=== PATIENT | male | born 1990 | race Caucasian/White ===

== ENCOUNTER 2021-11-09 15:38 | Emergency (ER) | payer OTHER ==
[~2021-11-09] VITALS: Ht 182.9 cm; Wt 59.9 kg
[~2021-11-09 15:38] MED LIST: NORCO 5-325 TA1 EACH PO
--- OUTSIDE RECORDS SUMMARY | 2021-11-09 15:44 | XMS ---
PreManage Notification: MIRNA GANNON Security Retail Account Manager Events No recent Security Events currently on file CRITERIA MET - [facility] - 2 Visits in 30 Days CARE PROVIDERS There are no care providers on record at this time. Cam has no Care Guidelines for this patient. Dany VIS[facility] COUNT (12 MO.) [facility] TOTAL 2 NOTE: Visits indicate total known visits. ED/C VISIT TRACKING (12 MO.) [facility] COMPLAINT: - JAW PAIN 11/08/2021 22:14 [facility] [place] TYPE: Emergency COMPLAINT: - JAW PAIN INPATIENT VISIT TRACKING (12 MO.) No inpatient visits to display in this time frame [id number]
[2021-11-09] MEDS ORDERED: PENICILLIN V P500 MG PO (17:03)
== END 2021-11-09 17:11 | disposition home or self-care (01) ==
LOC: ED 15:38
DX: R68.84 Jaw pain (principal); F17.200 Nicotine dependence, unspecified, uncomplicated
CPT/HCPCS: 99283

== ENCOUNTER 2024-07-30 13:42 | Emergency (ER) | payer OTHER ==
[~2024-07-30] VITALS: Ht 182.9 cm; Wt 66.1 kg
[~2024-07-30 13:42] MED LIST changes: +PENICILLIN V P500 MG PO
[2024-07-30] MEDS ORDERED: HYDROCODONE/APAP 10/325 1 TAB PO ONE (14:30)
[2024-07-30 14:50] VITALS: BP 121/90
[2024-07-30] MEDS ORDERED: HYDROCODON-ACE1 EAC8 PO (16:06)
== END 2024-07-30 14:50 | disposition home or self-care (01) ==
LOC: ED 13:42
DX: S52.122A Displaced fracture of head of left radius, initial encounter for closed fracture (principal); V29.91XA Electric (assisted) bicycle rider (driver) (passenger) injured in unspecified traffic accident, initial encounter; F17.200 Nicotine dependence, unspecified, uncomplicated
CPT/HCPCS: 73030; 73080; 99283; A9270

== ENCOUNTER 2024-12-21 20:28 | Emergency (ER) | payer OTHER ==
[~2024-12-21] VITALS: Ht 182.9 cm; Wt 64.0 kg
[~2024-12-21 20:28] MED LIST changes: +HYDROCODON-ACE1 EAC8 PO
[2024-12-21] MEDS ORDERED: KETOROLAC TROMETHAMINE 15 MG/ML VIAL IV ONE (20:45)
[2024-12-21 20:52] LABS: BASOPHILS 1.4 % (0.2-1.2); EOSINOPHILS 2.6 % (0.8-7.0); LYMPHOCYTES 24.8 % (21.8-53.1); MCH 30.9 PG (25.7-32.2); MCHC 34.2 g/dL (32.3-36.5); MCV 90.4 fL (79.0-92.2); MONOCYTES 12.0 % (5.3-12.2); NEUTROPHILS 58.6 % (34.0-67.9); RBC 4.69 M/uL (4.63-6.08)
[2024-12-21 20:53] LABS: BLOOD/HGB, URINE LARGE (Negative); KETONE, URINE NEGATIVE (Negative); LEUK ESTERASE, URINE TRACE (negative); NITRITE, URINE POSITIVE (negative)
[2024-12-21 20:58] LABS: BACTERIA, URINE RARE /hpf (negative); CASTS, URINE NONE SEEN \\lpf; CRYSTALS, URINE NONE SEEN (0-1+); EPITHELIAL CELLS, URINE SQUAMOUS 1+ /lpf (0-1+)
[2024-12-21 20:59] LABS: REFLEX CULTURE, URINE Yes (No)
[2024-12-21 21:07] LABS: ALT (SGPT) 17.0 U/L (14-59); AST (SGOT) 13.0 U/L (15-37); GLOMERULAR FILTRATION RATE,EST 72.0 mL/min (>60); PROTEIN, TOTAL 7.8 g/dL (6.4-8.2); UREA NITROGEN 18.0 mg/dL (7-18)
[2024-12-21] MEDS ORDERED: NITROFURANTOIN MONOHYD MACROCR 100 MG CAP PO ONE (22:15)
[2024-12-21] MEDS ORDERED: TAMSULOSIN HCL 0.4 MG CAP PO ONE (22:15)
[2024-12-21] MEDS ORDERED: NITROFURANTOIN MONOHYD MACROCR 100 MG HOME.PACK PO ONE (22:45)
[2024-12-21] MEDS ORDERED: MACROBID 100 M100 MG PO (22:47)
[2024-12-21 22:54] VITALS: BP 123/87
[2024-12-21 23:35] LABS: N. GONORRRHOEAE BY PCR NOT DETECTED (NOT DETECT)
== END 2024-12-21 22:54 | disposition home or self-care (01) ==
LOC: ED 20:28
PROVIDERS: Internal Medicine
DX: N39.0 Urinary tract infection, site not specified (principal); F17.200 Nicotine dependence, unspecified, uncomplicated
CPT/HCPCS: 36415; 74176; 80053; 81001; 85025; 87088; 96374; 99284-25; J1885

== ENCOUNTER 2025-01-11 15:46 | Emergency (ER) | payer OTHER ==
[~2025-01-11] VITALS: Ht 182.9 cm; Wt 64.0 kg
[~2025-01-11 15:46] MED LIST changes: +MACROBID 100 M100 MG PO
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
[2025-01-11] MEDS ORDERED: SULFAMETHOXAZO1 EAC1 PO (15:55)
[2025-01-11] MEDS ORDERED: SODIUM CHLORIDE 0.9% 1,000 ML IV PRN (16:15)
[2025-01-11 16:26] LABS: BASOPHILS 1.3 % (0.2-1.2); EOSINOPHILS 0.9 % (0.8-7.0); LYMPHOCYTES 14.6 % (21.8-53.1); MCH 30.8 PG (25.7-32.2); MCHC 34.2 g/dL (32.3-36.5); MCV 90.0 fL (79.0-92.2); MONOCYTES 12.5 % (5.3-12.2); NEUTROPHILS 70.4 % (34.0-67.9); RBC 4.22 M/uL (4.63-6.08)
[2025-01-11 16:41] LABS: ALT (SGPT) 21.0 U/L (14-59); AST (SGOT) 12.0 U/L (15-37); GLOMERULAR FILTRATION RATE,EST 85.0 mL/min (>60); PROTEIN, TOTAL 6.8 g/dL (6.4-8.2); UREA NITROGEN 18.0 mg/dL (7-18)
[2025-01-11 17:02] LABS: BLOOD/HGB, URINE TRACE-I (Negative); KETONE, URINE NEGATIVE (Negative); LEUK ESTERASE, URINE SMALL (negative); NITRITE, URINE NEGATIVE (negative)
[2025-01-11 17:13] LABS: BACTERIA, URINE NONE SEEN /hpf (negative); CASTS, URINE NONE SEEN \\lpf; CRYSTALS, URINE NONE SEEN (0-1+); EPITHELIAL CELLS, URINE SQUAMOUS 1+ /lpf (0-1+); REFLEX CULTURE, URINE Yes (No)
[2025-01-11] MEDS ORDERED: ONDANSETRON ODT4 MG PO (18:48)
[2025-01-11] MEDS ORDERED: CEFDINIR300 MG PO (18:48)
[2025-01-11] MEDS ORDERED: HYDROCODON-ACE1 EA10 PO (18:48)
[2025-01-11 20:10] VITALS: BP 123/89
== END 2025-01-11 20:12 | disposition home or self-care (01) ==
LOC: ED 15:46
PROVIDERS: Emergency Medicine
DX: N12 Tubulo-interstitial nephritis, not specified as acute or chronic (principal); F17.200 Nicotine dependence, unspecified, uncomplicated; Z88.8 Allergy status to other drugs, medicaments and biological substances; Z79.899 Other long term (current) drug therapy
CPT/HCPCS: 36415; 74177; 80053; 81001; 83690; 85025; 87088; 96374; 99284-25; J0696; J7030; Q9967